=== PATIENT | female | born 1995 | race African-American/Black ===

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

== ENCOUNTER 2017-09-28 21:51 | Emergency (ER) | payer OTHER ==
[~2017-09-28] VITALS: Ht 162.6 cm; Wt 95.5 kg
[2017-09-28 22:07] VITALS: BP 132/57; PULSE 68; RESP 16; TEMP 99.5; O2SAT 100
[2017-09-28] MEDS ORDERED: ONDANSETRON ODT 4 MG TAB PO ONE (23:00)
[2017-09-28] MEDS ORDERED: PROM25TA10 PO (23:06)
--- NOTE | 2017-09-28 23:06 | PD ---
HPI Chief Complaint: GI Complaint Time Seen by Provider: 22:52 Travel History International Travel<30 days: No Contact w/Intl Traveler<30days: No Traveled to known affect area: No History of Present Illness HPI 22-year-old female complains of lightheadedness and nausea vomiting. Patient states that the symptoms started yesterday. Patient states that she has intermittent abdominal cramping also. Patient denies any fever chills. Patient denies any cough or congestion. Patient denies any dysuria or frequency. Patient states that she did 2 tests at home today. Patient states that 1 of the test is positive and one of the test is negative. Patient states that her last menstruation period was July 31. [facility] Past Medical History Anemia: Yes Asthma: Yes Diminished Hearing: No Immunizations Current: Yes Tetanus Vaccination: < 5 Years Influenza Vaccination: No ?: Unknown LMP: 07/31/17 Past Surgical History Other Surgery: Yes (breast reduction) Social History Alcohol Use: No Tobacco Use: No Substance Use: No Allergies-Medications (Allergen,Severity, Reaction): Coded Allergies: No Known Allergies (Unverified , 09/24/16) Reported Meds & Prescriptions Reported Meds & Active Scripts Active Prednisone 10 Mg Tab 10 Mg PO DAILY Ventolin Hfa (Albuterol Sulfate) 8 Gm Aero 2 Puff INH Q4 PRN * SHAKE WELL BEFORE USE * Review of Systems General / Constitutional: No: Fever Eyes: No: Visual changes HENT: No: Headaches Cardiovascular: No: Chest Pain or Discomfort Respiratory: No: Shortness of Breath Gastrointestinal: Positive: Nausea, Vomiting, Abdominal Pain Genitourinary: No: Dysuria Musculoskeletal: No: Pain Skin: No Rash Neurologic: No: Weakness Psychiatric: No: Depression Endocrine: No: Polydipsia Hematologic/Lymphatic: No: Easy Bruising Physical Exam Narrative GENERAL: Well-nourished, well-developed patient. SKIN: Focused skin assessment warm/dry. HEAD: Normocephalic. EYES: No scleral icterus. No injection or drainage. NECK: Supple, trachea midline. No JVD or lymphadenopathy. CARDIOVASCULAR: Regular rate and rhythm without murmurs, gallops, or rubs. RESPIRATORY: Breath sounds equal bilaterally. No accessory muscle use. GASTROINTESTINAL: Abdomen soft, non-tender, nondistended. MUSCULOSKELETAL: No cyanosis, or edema. BACK: Nontender without obvious deformity. No CVA tenderness. Data Data Last Documented VS Vital Signs Date Time Temp Pulse Resp B/P (MAP) Pulse Ox O2 Delivery O2 Flow Rate FiO2 09/28/17 22:07 99.5 68 16 132/57 (82) 100 Orders Orders Ondansetron Odt (Zofran Odt) (09/28/17 23:00) MDM Medical Decision Making Medical Screen Exam Complete: Yes Emergency Medical Condition: Yes Interpretation(s) Urine test negative. Differential Diagnosis Differential diagnoses including amenorrhea, gastroenteritis, amenorrhea, . Narrative Course 22-year-old female with nausea vomiting abdominal cramping. Patient's vital signs stable. Physical exam benign. No evidence of dehydration. Urine test negative. Diagnosis Primary Impression: Gastroenteritis Patient Instructions: General Instructions Med/Other Pt SpecificInfo: Prescription(s) given Scripts Promethazine (Phenergan) 25 Mg Tablet 25 MG PO Q6H Y for NAUSEA OR VOMITING, #10 TAB 0 Refills Prov: Darien Jon MD 09/28/17 Disposition: 01 DISCHARGE HOME Condition: Stable Darien Jon MD Sep 28, 2017 23:06
== END 2017-09-28 23:36 | disposition home or self-care (01) ==
LOC: NEPD 21:51
DX: K52.9 Noninfective gastroenteritis and colitis, unspecified (principal)
CPT/HCPCS: 99283